=== PATIENT | female | born 1975 | race African-American/Black ===

== ENCOUNTER 2017-05-02 12:36 | Emergency (ER) | payer BC ==
[~2017-05-02] VITALS: Ht 170.2 cm; Wt 64.4 kg
[~2017-05-02 12:36] MED LIST: ANUSOL1 EACH RC; NO HOME MEDICATION.
[2017-05-02 13:04] LABS: URINE BILIRUBIN NEGATIVE (Negative); URINE BLOOD TRACE (Negative); URINE CLARITY CLEAR; URINE COLOR YELLOW; URINE GLUCOSE-RANDOM NEGATIVE (Negative); URINE KETONES NEGATIVE (Negative); URINE LEUKOCYTES-REFLEX NEGATIVE (Negative); URINE NITRITE-REFLEX NEGATIVE (Negative); URINE PROTEIN NEGATIVE (Negative); URINE SPECIFIC GRAVITY 1.025 (1.005-1.030); URINE UROBILINOGEN 0.2 E.U./dl (0.2-1.0)
[2017-05-02 13:29] LABS: ABSOLUTE EOSINOPHILS 0.1 thou/uL (0.0-0.7); ABSOLUTE LYMPHOCYTES 2.1 thou/uL (0.8-5.3); ABSOLUTE MONOCYTES 0.4 thou/uL (0.0-1.2); ABSOLUTE NEUTROPHILS 2.7 thou/uL (1.6-8.1); BASOPHILS 0.8 %; EOSINOPHILS 2.3 %; HEMATOCRIT 37.2 % (37.0-47.0); HEMOGLOBIN 11.9 gm/dL (12.0-15.0); MCH 28.6 pg (26.0-34.0); MCV 89.2 fL (80.0-100.0); MONOCYTES 7.8 %; MPV 10.4 fl. (7.2-11.1); NUCLEATED RBCS 0 /100WBC; PLATELET COUNT* 240 thou/uL (150-400); POLYS 50.1 %; RBC 4.17 mil/uL (4.20-5.00); RDW-CV 13.9 % (10.5-14.5); WBC 5.4 thou/uL (4.0-11.0)
[2017-05-02 13:36] LABS: CALCIUM 8.5 mg/dL (8.5-10.1); CREATININE 0.9 mg/dL (0.6-1.3)
[2017-05-02 13:40] LABS: ALBUMIN 3.6 g/dL (3.4-5.0); TOTAL BILIRUBIN 1.3 mg/dL (<0.1-1.0); TOTAL PROTEIN 7.3 g/dL (6.4-8.2)
[2017-05-02] MEDS ORDERED: ZOFRAN4 MG PO (14:17)
[2017-05-02] MEDS ORDERED: NORCO 5-325 TA1 EAC1 PO (14:17)
[2017-05-02] MEDS ORDERED: FLOMAX0.4 MG PO (14:17)
[2017-05-02 14:45] VITALS: BP 104/73
== END 2017-05-02 14:45 | disposition home or self-care (01) ==
LOC: M.ERS 12:36
PROVIDERS: Physician Assistant
DX: N20.1 Calculus of ureter (principal); Z90.711 Acquired absence of uterus with remaining cervical stump; Z98.890 Other specified postprocedural states; Z88.5 Allergy status to narcotic agent